=== PATIENT | female | born 1960 | race African-American/Black ===

== ENCOUNTER 2021-04-02 08:36 | Emergency (ER) | payer MEDICAID ==
[~2021-04-02] VITALS: Ht 157.5 cm; Wt 79.0 kg
[~2021-04-02 08:36] MED LIST: [UNRECOGNIZED DRUG - REMARK]
[2021-04-02 08:40] VITALS: BP 143/80
== END 2021-04-02 09:34 | disposition home or self-care (01) ==
LOC: ER 08:36
DX: T16.2XXA Foreign body in left ear, initial encounter (principal); T16.1XXA Foreign body in right ear, initial encounter; I10 Essential (primary) hypertension; E11.9 Type 2 diabetes mellitus without complications; G40.909 Epilepsy, unspecified, not intractable, without status epilepticus; J45.909 Unspecified asthma, uncomplicated; Z98.890 Other specified postprocedural states; Z88.0 Allergy status to penicillin; X58.XXXA Exposure to other specified factors, initial encounter; Y93.89 Activity, other specified; Y92.018 Other place in single-family (private) house as the place of occurrence of the external cause
CPT/HCPCS: 69200; 99284

== ENCOUNTER 2022-11-14 08:31 | Inpatient (IN) | payer MEDICAID, OTHER ==
[~2022-11-14] VITALS: Ht 160 cm; Wt 91.2 kg
[2022-11-14] MEDS ORDERED: ALBUTEROL (0.083%) 2.5MG/3ML NEB HHN STA ×2 (08:53→12:15)
[2022-11-14] MEDS ORDERED: IPRATROPIUM BROMIDE (0.02%) 0.5MG/2.5ML NEB HHN STA ×2 (08:53→12:15)
[2022-11-14] MEDS ORDERED: PREDNISONE 20MG TABLET PO STA (08:53)
[2022-11-14] MEDS ORDERED: ASPIRIN 81MG TABLET PO ONE (09:00)
[2022-11-14 10:16] LABS: BASOPHILS % 0.4 % (0.0-2.0); EOSINOPHILS % 0.8 % (0.0-5.0); HEMATOCRIT. 38.6 % (36.0-48.0); HEMOGLOBIN. 12.7 g/dL (12.0-16.0); LYMPHOCYTES % 10.1 % (20.0-50.0); MEAN CORPUSCULAR HEMOGLOBIN 31.3 pg (28.0-32.0); MEAN CORPUSCULAR VOLUME 95.5 fL (81.0-99.0); MEAN PLATELET VOLUME 10.3 fl (7.4-10.4); MONOCYTES % 7.6 % (2.0-8.0); NEUTROPHILS % 81.1 % (40.0-76.0); PLATELET 229 x1000/uL (130-400); RED BLOOD CELL COUNT 4.04 mill/uL (4.2-5.4); RED CELL DISTRIBUTION WIDTH 14.4 % (11.6-14.6)
[2022-11-14 11:46] LABS: CHLORIDE 103 mEq/L (98-107)
[2022-11-14] MEDS ORDERED: NITROGLYCERIN 0.4MG TABLET SL SL PRN (12:15)
[2022-11-14] MEDS ORDERED: MAGNESIUM 2 G PREMIX 50 ML IV ONE (12:15)
[2022-11-14] MEDS ORDERED: ONDANSETRON HCL 4MG/2ML INJ IV PRN (13:45)
[2022-11-14] MEDS ORDERED: ACETAMINOPHEN 325MG TABLET PO PRN (13:45)
[2022-11-14] MEDS ORDERED: FUROSEMIDE 40MG/4ML VIAL IVP NR (13:55)
[2022-11-14] MEDS: AMLODIPINE 10MG TABLET PO SCH (13:57)
[2022-11-14] MEDS: METHYLPREDNISOLONE SOD SUCC 40 MG/ML VIAL IV SCH ×2 (14:02→20:52)
[2022-11-14 16:00] VITALS: BP 123/67
[2022-11-14 17:36] VITALS: BP 123/67
[2022-11-14] MEDS ORDERED: IPRATROPIUM/ALBUTEROL 0.5-3(2.5)MG/3ML NEB HHN SCH (18:00)
[2022-11-14] MEDS ORDERED: ASPI-1497 MT (18:12)
[2022-11-14] MEDS ORDERED: PIOG45TA64 MT (18:12)
[2022-11-14] MEDS ORDERED: FURO20TA4 MT (18:12)
[2022-11-14] MEDS ORDERED: MELO-106 MT (18:12)
[2022-11-14] MEDS ORDERED: METF-416 MT (18:12)
[2022-11-14] MEDS ORDERED: MONT-39 MT (18:12)
[2022-11-14] MEDS ORDERED: BENA1TAB19 MT (18:12)
[2022-11-14] MEDS ORDERED: LORA10TA7 MT (18:12)
[2022-11-14] MEDS ORDERED: ATOR20TA65 MT (18:12)
[2022-11-14] MEDS ORDERED: PNEUMOCOCCAL 23-VAL P-SAC VAC 0.5 ML IM ONE (19:15)
[2022-11-14] MEDS ORDERED: INFLUENZA VACCINE 05/PF 0.5 ML SYRINGE IM ONE (19:15)
[2022-11-14 20:00] VITALS: BP 107/51
[2022-11-14] MEDS ORDERED: NALOXONE HCL 0.4MG/ML VIAL IV PRN (20:45)
[2022-11-14] MEDS: FAMOTIDINE 20MG TABLET PO SCH (20:50)
[2022-11-14] MEDS: KETOROLAC 15MG/ML VIAL IV PRN (20:52)
[2022-11-14 21:13] LABS: HEPATITIS B SURFACE ANTIGEN NEGATIVE
[2022-11-14] MEDS: ENOXAPARIN 30MG/0.3ML SYR SUBCUT SCH (22:22)
[2022-11-15] VITALS (7 sets, daily range): BP systolic 93–132; BP diastolic 49–66
[2022-11-15] MEDS: IPRATROPIUM BROMIDE (0.02%) 0.5MG/2.5ML NEB HHN SCH ×4 (03:06→21:05)
[2022-11-15] MEDS: ALBUTEROL (0.083%) 2.5MG/3ML NEB HHN SCH ×4 (03:07→21:05)
[2022-11-15] MEDS: HYDROCODONE/ACETAMINOPHEN 5/325MG TABLET PO PRN ×4 (03:15→21:32)
[2022-11-15] MEDS: METHYLPREDNISOLONE SOD SUCC 40 MG/ML VIAL IV SCH ×3 (05:33→21:22)
[2022-11-15 07:59] LABS: *AMPHETAMINES SCREEN URINE NEGATIVE (NEGATIVE); *BARBITURATES SCREEN URINE NEGATIVE (NEGATIVE); *BENZODIAZEPINES SCREEN URINE NEGATIVE (NEGATIVE); *COCAINE SCREEN URINE NEGATIVE (NEGATIVE); CANNABINOID URINE SCREEN NEGATIVE (NEGATIVE); METHADONE URINE SCREEN NEGATIVE (NEGATIVE); OPIATES URINE SCREEN NEGATIVE (NEGATIVE); PHENCYCLIDINE URINE SCREEN NEGATIVE (NEGATIVE)
[2022-11-15] MEDS: AMLODIPINE 10MG TABLET PO SCH (08:22)
[2022-11-15] MEDS: ENOXAPARIN 30MG/0.3ML SYR SUBCUT SCH ×2 (08:23→21:23)
[2022-11-15] MEDS ORDERED: FUROSEMIDE 40MG/4ML VIAL IVP SCH (09:00)
[2022-11-15] MEDS: BENZONATATE 100MG CAPSULE PO PRN ×2 (11:07→21:22)
[2022-11-15] MEDS: LORATADINE 10MG TABLET PO SCH (16:30)
[2022-11-15] MEDS: MONTELUKAST SODIUM 10MG TABLET PO SCH (16:30)
[2022-11-15] MEDS: FLUTICASONE PROPIONATE 50MCG/SPRAY BOTTLE BOTHNSTRLS SCH ×2 (16:30→21:23)
[2022-11-15] MEDS: KETOROLAC 15MG/ML VIAL IV PRN (16:31)
[2022-11-15] MEDS: FAMOTIDINE 20MG TABLET PO SCH (21:22)
[2022-11-16] VITALS: BP 121/62
[2022-11-16] MEDS: IPRATROPIUM BROMIDE (0.02%) 0.5MG/2.5ML NEB HHN SCH ×4 (02:06→21:05)
[2022-11-16] MEDS: ALBUTEROL (0.083%) 2.5MG/3ML NEB HHN SCH ×4 (02:06→21:05)
[2022-11-16] MEDS: METHYLPREDNISOLONE SOD SUCC 40 MG/ML VIAL IV SCH ×3 (06:13→21:41)
[2022-11-16 08:00] VITALS: BP 147/82
[2022-11-16] MEDS: FUROSEMIDE 40MG TABLET PO SCH (09:32)
[2022-11-16] MEDS: LORATADINE 10MG TABLET PO SCH (09:32)
[2022-11-16] MEDS: ENOXAPARIN 30MG/0.3ML SYR SUBCUT SCH ×2 (09:32→21:42)
[2022-11-16] MEDS: AMLODIPINE 10MG TABLET PO SCH (09:33)
[2022-11-16] MEDS: FLUTICASONE PROPIONATE 50MCG/SPRAY BOTTLE BOTHNSTRLS SCH ×2 (09:33→21:43)
[2022-11-16 12:00] VITALS: BP 116/44
[2022-11-16 16:00] VITALS: BP 103/52
[2022-11-16] MEDS: MONTELUKAST SODIUM 10MG TABLET PO SCH (17:11)
[2022-11-16 20:00] VITALS: BP 112/47
[2022-11-16] MEDS: FAMOTIDINE 20MG TABLET PO SCH (21:41)
[2022-11-17] VITALS: BP 91/41
[2022-11-17] MEDS: ALBUTEROL (0.083%) 2.5MG/3ML NEB HHN SCH ×4 (02:40→21:55)
[2022-11-17] MEDS: IPRATROPIUM BROMIDE (0.02%) 0.5MG/2.5ML NEB HHN SCH ×4 (02:40→21:55)
[2022-11-17 04:00] VITALS: BP 135/59
[2022-11-17] MEDS: METHYLPREDNISOLONE SOD SUCC 40 MG/ML VIAL IV SCH ×3 (05:24→21:24)
[2022-11-17 08:00] VITALS: BP 130/61
[2022-11-17] MEDS: ENOXAPARIN 30MG/0.3ML SYR SUBCUT SCH ×2 (09:51→21:25)
[2022-11-17] MEDS: LORATADINE 10MG TABLET PO SCH (09:51)
[2022-11-17] MEDS: FUROSEMIDE 40MG TABLET PO SCH (09:51)
[2022-11-17] MEDS: AMLODIPINE 10MG TABLET PO SCH (09:51)
[2022-11-17] MEDS: FLUTICASONE PROPIONATE 50MCG/SPRAY BOTTLE BOTHNSTRLS SCH ×2 (09:53→21:24)
[2022-11-17 12:00] VITALS: BP 143/56
[2022-11-17] MEDS: HYDROCODONE/ACETAMINOPHEN 5/325MG TABLET PO PRN ×2 (14:28→21:23)
[2022-11-17] MEDS ORDERED: FUROSEMIDE 20MG/2ML VIAL IVP NR (15:30)
[2022-11-17 16:00] VITALS: BP 123/37
[2022-11-17] MEDS: MONTELUKAST SODIUM 10MG TABLET PO SCH (17:15)
[2022-11-17] MEDS: SPIRONOLACTONE 25MG TABLET PO SCH (17:20)
[2022-11-17 20:00] VITALS: BP 131/69
[2022-11-17] MEDS: FAMOTIDINE 20MG TABLET PO SCH (21:24)
[2022-11-17 22:18] LABS: CHLORIDE 93 mEq/L (98-107)
[2022-11-18] VITALS: BP 122/58
[2022-11-18] MEDS: ALBUTEROL (0.083%) 2.5MG/3ML NEB HHN SCH ×4 (02:16→18:00)
[2022-11-18] MEDS: IPRATROPIUM BROMIDE (0.02%) 0.5MG/2.5ML NEB HHN SCH ×4 (02:16→18:00)
[2022-11-18 04:00] VITALS: BP 144/67
[2022-11-18] MEDS: METHYLPREDNISOLONE SOD SUCC 40 MG/ML VIAL IV SCH ×3 (06:20→22:00)
[2022-11-18 08:00] VITALS: BP 152/77
[2022-11-18] MEDS: AMLODIPINE 10MG TABLET PO SCH (09:10)
[2022-11-18] MEDS: FUROSEMIDE 40MG TABLET PO SCH (09:10)
[2022-11-18] MEDS: SPIRONOLACTONE 25MG TABLET PO SCH (09:10)
[2022-11-18] MEDS: LORATADINE 10MG TABLET PO SCH (09:10)
[2022-11-18] MEDS: ENOXAPARIN 30MG/0.3ML SYR SUBCUT SCH ×2 (09:11→23:39)
[2022-11-18] MEDS: FLUTICASONE PROPIONATE 50MCG/SPRAY BOTTLE BOTHNSTRLS SCH (09:34)
[2022-11-18 12:00] VITALS: BP 135/53
[2022-11-18 16:00] VITALS: BP 126/47
[2022-11-18] MEDS: MONTELUKAST SODIUM 10MG TABLET PO SCH (17:03)
[2022-11-18] MEDS ORDERED: IOHEXOL-350 100 ML BOTTLE ONE (17:19)
[2022-11-18 20:00] VITALS: BP 110/52
[2022-11-18] MEDS: FAMOTIDINE 20MG TABLET PO SCH (23:38)
[2022-11-19] VITALS: BP 112/52
[2022-11-19 04:00] VITALS: BP 106/51
[2022-11-19] MEDS ORDERED: IOHEXOL-350 100 ML BOTTLE ONE (04:08)
[2022-11-19] MEDS: METHYLPREDNISOLONE SOD SUCC 40 MG/ML VIAL IV SCH ×2 (05:58→13:13)
[2022-11-19 08:00] VITALS: BP 130/65
[2022-11-19] MEDS: AMLODIPINE 10MG TABLET PO SCH (09:21)
[2022-11-19] MEDS: ENOXAPARIN 30MG/0.3ML SYR SUBCUT SCH ×2 (09:21→21:32)
[2022-11-19] MEDS: FUROSEMIDE 40MG TABLET PO SCH (09:21)
[2022-11-19] MEDS: SPIRONOLACTONE 25MG TABLET PO SCH (09:21)
[2022-11-19] MEDS: LORATADINE 10MG TABLET PO SCH (09:21)
[2022-11-19 09:36] LABS: BASOPHILS % 0.2 % (0.0-2.0); EOSINOPHILS % 0.1 % (0.0-5.0); HEMATOCRIT. 38.4 % (36.0-48.0); HEMOGLOBIN. 12.5 g/dL (12.0-16.0); LYMPHOCYTES % 16.1 % (20.0-50.0); MEAN CORPUSCULAR HEMOGLOBIN 30.8 pg (28.0-32.0); MEAN CORPUSCULAR VOLUME 94.8 fL (81.0-99.0); MONOCYTES % 10.5 % (2.0-8.0); NEUTROPHILS % 73.1 % (40.0-76.0); PLATELET 255 x1000/uL (130-400); RED BLOOD CELL COUNT 4.05 mill/uL (4.2-5.4); RED CELL DISTRIBUTION WIDTH 14.2 % (11.6-14.6)
[2022-11-19] MEDS: IPRATROPIUM BROMIDE (0.02%) 0.5MG/2.5ML NEB HHN SCH ×4 (09:39→20:48)
[2022-11-19] MEDS: ALBUTEROL (0.083%) 2.5MG/3ML NEB HHN SCH ×4 (09:40→20:47)
[2022-11-19 09:41] LABS: CHLORIDE 92 mEq/L (98-107)
[2022-11-19 12:00] VITALS: BP 139/77
[2022-11-19] MEDS: HYDROCODONE/ACETAMINOPHEN 5/325MG TABLET PO PRN (12:07)
[2022-11-19 14:14] LABS: BG BASE EXCESS -0.4 mmol/L (-2.0-2.0); BG CARBOXYHEMOGLOBIN 0.7 % (0.5-1.5); BG DEOXYHEMOGLOBIN 7.4 % (0.0-5.0); BG FRACTION INSPIRED OXYGEN 21; BG HCO3 ACT 24.1 mmol/L (22.0-26.0); BG METHEMOGLOBIN 0.3 % (0.0-1.5); BG OXYGEN SATURATION 92.5 % (92.0-98.5); BG OXYHEMOGLOBIN 91.6 % (94.0-97.0); BG PH 7.408 (7.350-7.450); BG PO2 67.7 mmHg (75.0-100.0); BG SAMPLE SITE RIGHT BRACHIAL; BG TOTAL HEMOGLOBIN 13.1 g/dL (12.0-18.0); BG VENT MODE ROOM AIR
[2022-11-19 16:00] VITALS: BP 125/59
[2022-11-19] MEDS: PREDNISONE 20MG TABLET PO SCH (17:45)
[2022-11-19] MEDS: MONTELUKAST SODIUM 10MG TABLET PO SCH (17:45)
[2022-11-19] MEDS: FAMOTIDINE 20MG TABLET PO SCH (20:43)
[2022-11-19] MEDS: GUAIFENESIN 600MG ER TABLET PO SCH (20:43)
[2022-11-19] MEDS: FLUTICASONE PROPIONATE 50MCG/SPRAY BOTTLE BOTHNSTRLS SCH (20:44)
[2022-11-19] MEDS: BUDESONIDE 0.5MG/2ML NEB HHN SCH (20:49)
[2022-11-19 23:59] LABS: PLATELET ESTIMATE NORMAL
[2022-11-20] VITALS: BP 111/55
[2022-11-20] MEDS: ALBUTEROL (0.083%) 2.5MG/3ML NEB HHN SCH ×4 (02:28→20:12)
[2022-11-20] MEDS: IPRATROPIUM BROMIDE (0.02%) 0.5MG/2.5ML NEB HHN SCH (02:28)
[2022-11-20 04:00] VITALS: BP 111/53
[2022-11-20 08:00] VITALS: BP 103/53
[2022-11-20] MEDS: SPIRONOLACTONE 25MG TABLET PO SCH (09:00)
[2022-11-20] MEDS: AMLODIPINE 10MG TABLET PO SCH (09:00)
[2022-11-20] MEDS: BUDESONIDE 0.5MG/2ML NEB HHN SCH (09:32)
[2022-11-20] MEDS: GUAIFENESIN 600MG ER TABLET PO SCH ×2 (09:54→20:43)
[2022-11-20] MEDS: PREDNISONE 20MG TABLET PO SCH ×2 (09:54→17:43)
[2022-11-20] MEDS: LORATADINE 10MG TABLET PO SCH (09:55)
[2022-11-20] MEDS: ENOXAPARIN 30MG/0.3ML SYR SUBCUT SCH ×2 (09:55→21:27)
[2022-11-20] MEDS: FUROSEMIDE 20MG TABLET PO SCH (09:59)
[2022-11-20] MEDS: FLUTICASONE PROPIONATE 50MCG/SPRAY BOTTLE BOTHNSTRLS SCH ×2 (10:00→20:44)
[2022-11-20 12:00] VITALS: BP 101/53
[2022-11-20 16:00] VITALS: BP 106/56
[2022-11-20] MEDS: MONTELUKAST SODIUM 10MG TABLET PO SCH (17:43)
[2022-11-20 20:00] VITALS: BP 101/41
[2022-11-20] MEDS: FAMOTIDINE 20MG TABLET PO SCH (20:43)
[2022-11-21] VITALS: BP 106/50
[2022-11-21] MEDS: ALBUTEROL (0.083%) 2.5MG/3ML NEB HHN SCH ×3 (01:10→14:53)
[2022-11-21] MEDS: BUDESONIDE 0.5MG/2ML NEB HHN SCH ×2 (01:10→08:39)
[2022-11-21 04:00] VITALS: BP 119/64
[2022-11-21 08:00] VITALS: BP 100/47
[2022-11-21] MEDS: AMLODIPINE 10MG TABLET PO SCH (09:00)
[2022-11-21] MEDS: SPIRONOLACTONE 25MG TABLET PO SCH (09:00)
[2022-11-21] MEDS: FLUTICASONE PROPIONATE 50MCG/SPRAY BOTTLE BOTHNSTRLS SCH (09:00)
[2022-11-21] MEDS: PREDNISONE 20MG TABLET PO SCH ×2 (09:27→16:38)
[2022-11-21] MEDS: FUROSEMIDE 20MG TABLET PO SCH (09:27)
[2022-11-21] MEDS: GUAIFENESIN 600MG ER TABLET PO SCH (09:28)
[2022-11-21] MEDS: LORATADINE 10MG TABLET PO SCH (09:28)
[2022-11-21] MEDS: ENOXAPARIN 30MG/0.3ML SYR SUBCUT SCH (09:30)
[2022-11-21 12:00] VITALS: BP 118/53
[2022-11-21] MEDS ORDERED: AMLO10TA80 PO (14:46)
[2022-11-21] MEDS ORDERED: ALBU2.5V13 HHN (14:46)
[2022-11-21] MEDS ORDERED: P20 PO (14:46)
[2022-11-21] MEDS ORDERED: SPIR25TA PO (14:46)
[2022-11-21] MEDS ORDERED: CLAR10 PO (14:46)
[2022-11-21] MEDS ORDERED: FURO20TA4 PO (14:46)
[2022-11-21] MEDS ORDERED: PULM50 HHN (14:46)
[2022-11-21] MEDS ORDERED: MONT10TA21 PO (14:46)
[2022-11-21 14:57] VITALS: BP 110/50
[2022-11-21 15:52] VITALS: BP 110/50
[2022-11-21] MEDS: MONTELUKAST SODIUM 10MG TABLET PO SCH (16:38)
== END 2022-11-21 16:45 | disposition home or self-care (01) | DRG 140 ==
LOC: ER 08:31 → MICUSO 12:15 → 7EST 15:52
PROVIDERS: ADMIT Internal Medicine; ATTEND Internal Medicine
DX: J44.1 Chronic obstructive pulmonary disease with (acute) exacerbation (principal); J96.21 Acute and chronic respiratory failure with hypoxia; I50.33 Acute on chronic diastolic (congestive) heart failure; I27.20 Pulmonary hypertension, unspecified; Z99.81 Dependence on supplemental oxygen; I11.0 Hypertensive heart disease with heart failure; E11.9 Type 2 diabetes mellitus without complications; E66.9 Obesity, unspecified; Z20.822 Contact with and (suspected) exposure to COVID-19; I07.1 Rheumatic tricuspid insufficiency; I16.0 Hypertensive urgency; J30.9 Allergic rhinitis, unspecified; F17.210 Nicotine dependence, cigarettes, uncomplicated; Z88.0 Allergy status to penicillin; Z79.899 Other long term (current) drug therapy; Z68.35 Body mass index [BMI] 35.0-35.9, adult; Z82.49 Family history of ischemic heart disease and other diseases of the circulatory system; Z83.3 Family history of diabetes mellitus
CPT/HCPCS: 36415; 36600; 71045; 71275; 80048; 80053; 80305; 82375; 82805; 83036; 83880; 84484; 85025; 86803; 87340; 87426; 87804; 93005; 93306; 94640; 94664; 99285; C9803; J1650; J1885; J1940; J2920; J3475; J7512; J7626; Q9967

== ENCOUNTER 2022-12-13 04:56 | Emergency (ER) | payer OTHER ==
[~2022-12-13] VITALS: Ht 157.5 cm; Wt 102.0 kg
[~2022-12-13 04:56] MED LIST changes: +ALBU2.5V13 HHN; +AMLO10TA80 PO; +ASPI-1497 MT; +ATOR20TA65 MT; +CLAR10 PO; +FURO20TA4 PO; +MELO-106 MT; +METF-416 MT; +MONT-46 PO; +P20 PO; +PIOG45TA64 MT; +PULM50 HHN; +SPIR25TA PO; -[UNRECOGNIZED DRUG - REMARK]
[2022-12-13 05:23] VITALS: BP 123/64
== END 2022-12-13 10:09 | disposition left against medical advice (07) ==
LOC: ER 04:56
DX: M79.89 Other specified soft tissue disorders (principal); H57.11 Ocular pain, right eye; I11.0 Hypertensive heart disease with heart failure; I50.9 Heart failure, unspecified; E11.9 Type 2 diabetes mellitus without complications; J45.909 Unspecified asthma, uncomplicated; Z88.0 Allergy status to penicillin; Z87.01 Personal history of pneumonia (recurrent); Z79.899 Other long term (current) drug therapy; Z79.84 Long term (current) use of oral hypoglycemic drugs; Z95.0 Presence of cardiac pacemaker
CPT/HCPCS: 99281

== ENCOUNTER 2023-06-22 07:37 | Emergency (ER) | payer MEDICAID, OTHER ==
[~2023-06-22] VITALS: Ht 165.1 cm; Wt 72.0 kg
[2023-06-22 07:44] VITALS: BP 134/74; TEMP 98.8; O2SAT 97
[2023-06-22] MEDS ORDERED: IPRATROPIUM/ALBUTEROL 0.5-3(2.5)MG/3ML NEB HHN ONE (08:30)
[2023-06-22 09:01] LABS: HEMATOCRIT 36.3 % (36.0-48.0); HEMOGLOBIN 11.9 g/dL (12.0-16.0); MEAN CORPUSCULAR HEMOGLOBIN 31.6 pg (28.0-32.0); MEAN CORPUSCULAR HGB CONC 32.9 g/dL (31.0-37.0); MEAN CORPUSCULAR VOLUME 96.2 fL (81.0-99.0); PLATELET 213 x1000/uL (130-400); RED BLOOD CELL COUNT 3.77 mill/uL (4.2-5.4); RED CELL DISTRIBUTION WIDTH 14.6 % (11.6-14.6)
[2023-06-22 09:12] LABS: CHLORIDE 103 mEq/L (98-107); INDEX HEMOLYSI 2 (1-3); INDEX ICTERIC 1 (1-4); INDEX LIPEMIC 1 (1-3); POTASSIUM 3.6 mEq/L (3.5-5.1); SODIUM 136 mEq/L (136-145)
[2023-06-22 09:24] LABS: ALANINE AMINOTRANSFERASE 18 IU/L (13-61); ALBUMIN 3.5 g/dL (3.4-5.0); ASPARTATE AMINOTRANSFERASE 19 IU/L (15-37); CALCIUM 9.2 mg/dL (8.5-10.1); CARBON DIOXIDE 28 mEq/L (21-32); CREATININE 0.7 mg/dL (0.6-1.3); GLUCOSE 115 mg/dL (70-105); NT PRO B-TYPE NATRIURETIC PEP 39 pg/mL (5-125); PROTEIN TOTAL 7.8 g/dL (6.0-8.3); TROPONIN I HIGH SENSITIVITY 6 ng/L (<54); UREA NITROGEN BLOOD 15 mg/dL (7-21)
[2023-06-22 09:48] VITALS: PULSE 82; RESP 20
[2023-06-22] MEDS ORDERED: DOXY-456 MT (10:12)
== END 2023-06-22 11:17 | disposition home or self-care (01) ==
LOC: ER 07:37
DX: J18.9 Pneumonia, unspecified organism (principal); J45.909 Unspecified asthma, uncomplicated; I10 Essential (primary) hypertension; E11.9 Type 2 diabetes mellitus without complications; Z88.0 Allergy status to penicillin; Z79.899 Other long term (current) drug therapy
CPT/HCPCS: 80053; 83880; 85027; 84484; 36415; 71046; 94640; 93005; 99285; Z7610 ×3